=== PATIENT | female | born 1990 | race Two or more races ===

== ENCOUNTER 2017-06-04 08:48 | Day surgery (SDC) | payer BC, MEDICAID ==
[~2017-06-04 08:48] MED LIST: Lactated Ringers 1,000 ML IV SCH; Sodium Chloride 0.9% 10 ML Syringe FLUSH PRN
[2017-06-04] MEDS ORDERED: Lidocaine 2% 100 MG/5 ML Syringe IVPUSH ONE (10:30)
[2017-06-04] MEDS ORDERED: Propofol 200 MG/20 ML SDV IV ONE (10:30)
[2017-06-04] MEDS ORDERED: Midazolam 1 MG/ML 2 ML SDV IV ONE (10:30)
--- NOTE | 2017-06-04 11:03 | PCM.OPNOTE ---
- General Post-Op/Procedure Note Date of Surgery/Procedure: 06/04/17 Operative Procedure(s): egd with biopsy Findings: gastroduodenitis esophagitis Pre Op Diagnosis: gerd Post-Op Diagnosis: gastroduodenitis. esophagitis Primary Surgeon: Dwight Krishnamurthy Anesthesia Provider: Soila Adamson Pathology: duodenum stomach distal esophagus Complications: None Condition: Good Free Text/Narrative:: see dictation [id number]
--- NOTE | 2017-06-04 13:40 | OR ---
DATE OF OPERATION: 06/04/2017 SURGEON: Dwight Krishnamurthy MD PROCEDURE PERFORMED: EGD with cold forceps biopsy. PREOPERATIVE DIAGNOSIS: Symptomatic gastroesophageal reflux disease. POSTOPERATIVE DIAGNOSIS: Gastroduodenitis and esophagitis. INDICATIONS: This is a 27-year-old female, who is referred with the above-mentioned issues of persistent reflux symptoms despite treatment in the past. She was offered and accepted an EGD. DESCRIPTION OF PROCEDURE: After an excellent IV sedation was administered, the bite block was inserted. The flexible endoscope was passed without difficulty down the patient's esophagus into her stomach. The stomach was insufflated, and scope was passed through the pylorus to the second portion of duodenum and slowly withdrawn. The following findings were noted. First portion of the duodenum demonstrates duodenitis, biopsies were taken. Stomach, evidence of acute gastritis especially in the area of the antrum. Biopsies and photos were taken. GE junction measured at approximately 40 cm, but was noted to be highly irregular with evidence of esophagitis suggesting either reflux or even possible Lyman's esophagus and circumferential biopsies were taken of this area as well. This involved the distal 2 to 3 cm of the esophagus. The remainder of the esophageal exam was unremarkable. The stomach was deflated, and scope was removed. The patient tolerated the procedure well and was taken to recovery in good condition. /[id number] [address]
[2017-06-04 13:42] VITALS: BP 102/59
== END 2017-06-04 12:00 | disposition home or self-care (01) ==
LOC: FB.SDS 08:48
PROVIDERS: ATTEND Surgery
DX: K29.50 Unspecified chronic gastritis without bleeding (principal); K29.80 Duodenitis without bleeding; K21.0 Gastro-esophageal reflux disease with esophagitis; F32.9 Major depressive disorder, single episode, unspecified; F41.9 Anxiety disorder, unspecified; F17.210 Nicotine dependence, cigarettes, uncomplicated; Z90.49 Acquired absence of other specified parts of digestive tract; Z98.890 Other specified postprocedural states; Z79.899 Other long term (current) drug therapy
CPT/HCPCS: 43239; 81025; 88305; 88313; 88342; J2250; J2704; J7120

== ENCOUNTER 2017-06-06 15:45 | Emergency (ER) | payer BC, MEDICAID ==
--- NOTE | 2017-06-06 15:51 | EDM.PDOC ---
ED HPI GENERAL MEDICAL PROBLEM - General Chief Complaint: ENT Problem Stated Complaint: SINUS INFECTION Time Seen by Provider: 06/06/17 16:00 Source of Information: Reports: Patient History Limitations: Reports: No Limitations - History of Present Illness INITIAL COMMENTS - FREE TEXT/NARRATIVE: 27 yo F who presents to the ER wiith Sinus and chest congestion associated with cough, Body aches, Nasal congestion as well as ^ Fatigue. Reports that symptoms started 2 days ago and seems to be getting worse. Cough is productive of greenish yellow sputum. Does not recall fever but c/o Facial discomfort and pain over the Sinus area. No chest pain, nausea, vomiting or h/o sick contacts. Presented to the ER for further evaluation Onset: Gradual (started 2 days ago) Duration: Day(s): (2 days) - Related Data Allergies Allergy/AdvReac Type Severity Reaction Status Date / Time No Known Allergies Allergy Verified 06/06/17 16:05 Home Meds: Home Meds Escitalopram [Lexapro] 10 mg PO DAILY 06/03/17 [History] Fluticasone Furoate [Flonase Sensimist] 1 spray NASBOTH BID 06/03/17 [History] atoMOXetine [Strattera] 60 mg PO DAILY 06/03/17 [History] traZODone HCl [Trazodone HCl] 50 - 100 mg PO BEDTIME PRN 06/03/17 [History] Sucralfate [Carafate] 1 gm PO ACBED #56 tab 06/04/17 [Rx] Azithromycin [Zithromax] 250 mg PO DAILY #6 tablet 06/06/17 [Rx] predniSONE [Prednisone] 40 mg PO DAILY #10 tablet 06/06/17 [Rx] Past Medical History - Past Health History Medical/Surgical History: Denies Medical/Surgical History Gastrointestinal History: Reports: GERD 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 OB/BYN History: see triage assessment Psychiatric History: Reports: Anxiety, Depression - Past Surgical History GI Surgical History: Reports: Appendectomy Female Surgical History: Reports: Section, D&C Social & Family History - Tobacco Use Smoking Status *Q: Former Smoker Years of Tobacco use: 15 Used Tobacco, but Quit: Yes Month Tobacco Last Used: FEBRUARY 05, 2017 - Caffeine Use Caffeine Use: Reports: None - Alcohol Use Days Per Week of Alcohol Use: 0 - Recreational Drug Use Recreational Drug Use: No - Living Situation & Occupation Living situation: Reports: with Family Occupation: Employed ED ROS GENERAL - Review of Systems Review Of Systems: See Below Constitutional: Reports: Weakness, Fatigue HEENT: Reports: Rhinitis, Sinus Problem Respiratory: Reports: Shortness of Breath, Cough Cardiovascular: Reports: No Symptoms Endocrine: Reports: No Symptoms GI/Abdominal: Reports: No Symptoms : Reports: No Symptoms Musculoskeletal: Reports: No Symptoms Skin: Reports: No Symptoms Neurological: Reports: No Symptoms Psychiatric: Reports: No Symptoms Hematologic/Lymphatic: Reports: No Symptoms Immunologic: Reports: No Symptoms ED EXAM, GENERAL - Physical Exam Exam: See Below Exam Limited By: No Limitations General Appearance: Alert, WD/WN, No Apparent Distress Eye Exam: Bilateral Eye: Abnormal EOM, Foreign Body Ears: Normal External Exam, Normal Canal, Hearing Grossly Normal, Normal TMs Ear Exam: Bilateral Ear: Auricle Normal, Canal Normal Nose: No Blood, Nasal Drainage Throat/Mouth: Normal Inspection, Normal Lips, Normal Teeth, Normal Gums, Normal Oropharynx Head: Atraumatic, Normocephalic Neck: Normal Inspection, Supple, Non-Tender, Full Range of Motion Respiratory/Chest: No Respiratory Distress, Lungs Clear, Normal Breath Sounds, No Accessory Muscle Use Cardiovascular: Normal Peripheral Pulses, Regular Rate, Rhythm, No Edema, No Gallop, No JVD, No Murmur GI/Abdominal: Normal Bowel Sounds, Soft, Non-Tender, No Organomegaly, No Distention Extremities: Normal Inspection, Normal Range of Motion, Non-Tender, No Pedal Edema, Normal Capillary Refill Neurological: Alert, Oriented, CN II-XII Intact, Normal Cognition, Normal Gait Psychiatric: Normal Affect, Normal Mood Skin Exam: Warm, Dry, Intact, Normal Color, No Rash Lymphatic: No Adenopathy Course - Vital Signs Last Recorded V/S: Last Vital Signs Temp 36.3 C 06/06/17 16:08 Pulse 110 H 06/06/17 16:08 Resp 18 06/06/17 16:08 BP 138/92 H 06/06/17 16:08 Pulse Ox 100 06/06/17 16:08 Departure - Departure Time of Disposition: 16:13 Disposition: Home, Self-Care 01 Clinical Impression: Sinusitis, acute - Discharge Information Prescriptions: Azithromycin [Zithromax] 250 mg PO DAILY #6 tablet predniSONE [Prednisone] 40 mg PO DAILY #10 tablet Referrals: Win Villarreal MD [Primary Care Provider] - Additional Instructions: Follow with PCP Return if symptoms worsen Call your Physician or Return to Emergency Department if: * Your condition worsens in any way. * You develop fever greater than 100.4. * You have vomitting that does not stop with medications. * You have pain that is not controlled with medications. - Problem List & Annotations (1) Sinusitis SNOMED Code(s): 78971612 Code(s): J32.9 - CHRONIC SINUSITIS, UNSPECIFIED Status: Acute Qualifiers: Sinusitis location: maxillary Chronicity: acute Recurrence: recurrent Qualified Code(s): J01.01 - Acute recurrent maxillary sinusitis
[2017-06-06 16:16] VITALS: BP 138/92
== END 2017-06-06 16:27 | disposition home or self-care (01) ==
LOC: FB.ED 15:45
DX: J01.90 Acute sinusitis, unspecified (principal); K21.9 Gastro-esophageal reflux disease without esophagitis; F41.9 Anxiety disorder, unspecified; F32.9 Major depressive disorder, single episode, unspecified; Z90.49 Acquired absence of other specified parts of digestive tract; Z87.891 Personal history of nicotine dependence; Z79.899 Other long term (current) drug therapy
CPT/HCPCS: 99282

== ENCOUNTER 2019-12-27 07:50 | Emergency (ER) | payer BC, MEDICAID ==
--- NOTE | 2019-12-27 08:42 | EDM.PDOC ---
ED HPI GENERAL MEDICAL PROBLEM - General Stated Complaint: THROWING UP Time Seen by Provider: 12/27/19 08:35 Source of Information: Reports: Patient, Family - History of Present Illness INITIAL COMMENTS - FREE TEXT/NARRATIVE: has nausea and vomiting since this am with diarrhea and daughter have same symptoms Onset: Sudden Onset Date: 12/27/19 Duration: Day(s): (one) Location: Reports: Abdomen Quality: Reports: Ache, Dull Improves with: Reports: Rest Worsens with: Reports: Eating, Movement Context: Reports: Sick Contact Associated Symptoms: Reports: Fever/Chills, Malaise, Nausea/Vomiting - Related Data Allergies Allergy/AdvReac Type Severity Reaction Status Date / Time No Known Allergies Allergy Verified 06/06/17 16:05 Home Meds: Home Meds Escitalopram [Lexapro] 10 mg PO DAILY 06/03/17 [History] Fluticasone Furoate [Flonase Sensimist] 1 spray NASBOTH BID 06/03/17 [History] atoMOXetine [Strattera] 60 mg PO DAILY 06/03/17 [History] traZODone HCl [Trazodone HCl] 50 - 100 mg PO BEDTIME PRN 06/03/17 [History] Sucralfate [Carafate] 1 gm PO ACBED #56 tab 06/04/17 [Rx] Azithromycin [Zithromax] 250 mg PO DAILY #6 tablet 06/06/17 [Rx] predniSONE [Prednisone] 40 mg PO DAILY #10 tablet 06/06/17 [Rx] Ondansetron [Zofran ODT] 4 mg PO Q6H PRN #20 tab.dis 12/27/19 [Rx] Past Medical History - Past Health History Medical/Surgical History: Denies Medical/Surgical History Gastrointestinal History: Reports: GERD 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 Psychiatric History: Reports: Anxiety, Depression - Past Surgical History GI Surgical History: Reports: Appendectomy Female Surgical History: Reports: Section, D&C Social & Family History - Caffeine Use Caffeine Use: Reports: None - Living Situation & Occupation Living situation: Reports: with Family Occupation: Employed ED ROS GENERAL - Review of Systems Review Of Systems: See Below Constitutional: Reports: Malaise, Weakness, Fatigue HEENT: Reports: No Symptoms Respiratory: Reports: No Symptoms Cardiovascular: Reports: No Symptoms Endocrine: Reports: No Symptoms GI/Abdominal: Reports: Diarrhea, Decreased Appetite, Difficulty Swallowing, Distension : Reports: No Symptoms ED EXAM, GI/ABD - Physical Exam Exam: See Below Exam Limited By: No Limitations General Appearance: Alert, WD/WN, No Apparent Distress Eyes: Bilateral: EOMI Ears: Normal External Exam Nose: Normal Mucosa Throat/Mouth: Normal Inspection Head: Atraumatic, Normocephalic Neck: Normal Inspection, Supple, Full Range of Motion Cardiovascular: Normal Peripheral Pulses GI/Abdominal Exam: Soft, Non-Tender, No Organomegaly Neurological: Alert, Oriented Departure - Departure Time of Disposition: 08:40 Disposition: Home, Self-Care 01 Condition: Good Clinical Impression: Gastroenteritis - Discharge Information *PRESCRIPTION DRUG MONITORING PROGRAM REVIEWED*: Not Applicable *COPY OF PRESCRIPTION DRUG MONITORING REPORT IN PATIENT MIESHA: Not Applicable Referrals: Win Villarreal MD [Primary Care Provider] -
[2019-12-27 11:20] VITALS: BP 113/46; PULSE 88
== END 2019-12-27 08:50 | disposition home or self-care (01) ==
LOC: FB.ED 07:50
DX: K52.9 Noninfective gastroenteritis and colitis, unspecified (principal); K21.9 Gastro-esophageal reflux disease without esophagitis; F41.9 Anxiety disorder, unspecified; F32.9 Major depressive disorder, single episode, unspecified; Z79.899 Other long term (current) drug therapy
CPT/HCPCS: 99283

== ENCOUNTER 2020-02-01 17:26 | Emergency (ER) | payer MEDICAID ==
[2020-02-01] MEDS ORDERED: Ketorolac 60 MG/2 ML SDV IM ONE (17:48)
--- NOTE | 2020-02-01 17:52 | EDM.PDOC ---
ED HPI GENERAL MEDICAL PROBLEM - General Chief Complaint: ENT Problem Stated Complaint: BODY ACHES, SINUS PRESSURE, FEVER Time Seen by Provider: 02/01/20 17:35 Source of Information: Reports: Patient History Limitations: Reports: No Limitations - History of Present Illness INITIAL COMMENTS - FREE TEXT/NARRATIVE: since yesterday has had sinus congestion worse on the left side of the face today developed sore throat and congestion has gotten worse has facial pain , has fever chills body aches and pains Onset: Sudden Onset Date: 01/30/20 Duration: Getting Worse Location: Reports: Head, Face, Neck Quality: Reports: Ache, Dull, Throbbing Severity: Moderate Improves with: Reports: Heat Therapy Worsens with: Reports: Movement Context: Reports: Activity Associated Symptoms: Reports: Fever/Chills, Headaches, Loss of Appetite, Malaise 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 Generalized Pain Score (Numeric/FACES): 8 - Related Data Allergies Allergy/AdvReac Type Severity Reaction Status Date / Time No Known Allergies Allergy Verified 02/01/20 17:42 Home Meds: Home Meds Amoxicillin/Potassium Clav [Augmentin 875-125 Tablet] 1 each PO BID #20 tablet 02/01/20 [Rx] Naproxen 375 mg PO BID #30 tablet 02/01/20 [Rx] guaiFENesin [Mucinex] 600 mg PO BID #20 tab.er 02/01/20 [Rx] Past Medical History - Past Health History Medical/Surgical History: Denies Medical/Surgical History Gastrointestinal History: Reports: 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 Psychiatric History: Reports: Anxiety, Depression - Infectious Disease History Infectious Disease History: Reports: None - Past Surgical History GI Surgical History: Reports: Appendectomy Female Surgical History: Reports: Section, D&C Social & Family History - Family History Family Medical History: Noncontributory - Tobacco Use Smoking Status *Q: Unknown Ever Smoked - Caffeine Use Caffeine Use: Reports: Soda - Recreational Drug Use Recreational Drug Use: No - Living Situation & Occupation Living situation: Reports: with Family Occupation: Employed ED ROS ENT - Review of Systems Review Of Systems: Comprehensive ROS is negative, except as noted in HPI. ED EXAM, ENT - Physical Exam Exam: See Below Exam Limited By: No Limitations General Appearance: Alert, WD/WN, No Apparent Distress Eye Exam: Bilateral Eye: EOMI Ears: TM Bulging Nose: Clear Rhinorrhea Mouth/Throat: Normal Inspection Head: Atraumatic, Normocephalic Neck: Supple, Non-Tender Respiratory/Chest: Lungs Clear, Normal Breath Sounds Cardiovascular: Regular Rate, Rhythm, No JVD, No Murmur GI/Abdominal: Soft, Non-Tender Back: Full Range of Motion Extremities: Normal Range of Motion Neurological: Alert, Oriented, CN II-XII Intact Psychiatric: Normal Affect Skin: Warm Course - Vital Signs Last Recorded V/S: Last Vital Signs Temp 36.9 C 02/01/20 17:30 Pulse 121 H 02/01/20 17:30 Resp 18 02/01/20 17:30 BP 133/64 02/01/20 17:30 Pulse Ox 100 02/01/20 17:30 - Orders/Labs/Meds Orders: Active Orders 24 hr Category Date Time Status CULTURE STREP A CONFIRMATION [RM] Stat Lab 02/01/20 17:50 Results STREP SCRN A RAPID W CULT CONF [RM] Stat Lab 02/01/20 17:50 Results Isolation [COMM] Routine Oth 02/01/20 17:46 Ordered Meds: Medications Discontinued Medications Generic Name Dose Route Start Last Admin Trade Name Freq PRN Reason Stop Dose Admin Ketorolac Tromethamine 60 mg 02/01/20 17:48 02/01/20 17:54 Toradol IM 02/01/20 17:49 60 mg ONETIME ONE Administration - Re-Assessments/Exams Free Text/Narrative Re-Assessment/Exam: 02/01/20 17:54 pt swabbed for strep and influenza Departure - Departure Time of Disposition: 18:20 Disposition: Home, Self-Care 01 Clinical Impression: Acute maxillary sinusitis - Discharge Information *PRESCRIPTION DRUG MONITORING PROGRAM REVIEWED*: Not Applicable *COPY OF PRESCRIPTION DRUG MONITORING REPORT IN PATIENT MIESHA: Not Applicable Prescriptions: Amoxicillin/Potassium Clav [Augmentin 875-125 Tablet] 1 each PO BID #20 tablet guaiFENesin [Mucinex] 600 mg PO BID #20 tab.er Naproxen 375 mg PO BID #30 tablet Instructions: Sinusitis, Adult, [id number] Referrals: Win Villarreal MD [Primary Care Provider] - Forms: ED Department Discharge Additional Instructions: 1) Warm compress to the affected area of the face tid 2) continue with decongestant as prescribed Sepsis Event Note - Evaluation Sepsis Screening Result: No Definite Risk - Focused Exam Vital Signs: Vital Signs Temp Pulse Resp BP Pulse Ox 02/01/20 17:30 36.9 C 121 H 18 133/64 100 Date Exam was Performed: 02/01/20 Time Exam was Performed: 18:19 - My Orders Last 24 Hours: My Active Orders 02/01/20 17:46 Isolation [COMM] Routine 02/01/20 17:50 CULTURE STREP A CONFIRMATION [RM] Stat STREP SCRN A RAPID W CULT CONF [RM] Stat - Assessment/Plan Last 24 Hours: My Active Orders 02/01/20 17:46 Isolation [COMM] Routine 02/01/20 17:50 CULTURE STREP A CONFIRMATION [RM] Stat STREP SCRN A RAPID W CULT CONF [RM] Stat
[2020-02-01 18:28] VITALS: BP 116/62; PULSE 117
== END 2020-02-01 18:30 | disposition home or self-care (01) ==
LOC: FB.ED 17:26
DX: J01.00 Acute maxillary sinusitis, unspecified (principal)
CPT/HCPCS: 87081; 87804; 87804-59; 87880-QW; 96372; 99283; J1885

== ENCOUNTER 2020-08-07 01:06 | Emergency (ER) | payer MEDICAID ==
--- NOTE | 2020-08-07 01:32 | EDM.PDOC ---
ED HPI GENERAL MEDICAL PROBLEM - General Stated Complaint: FLY FLEW INTO EAR Time Seen by Provider: 08/07/20 01:10 Source of Information: Reports: Patient History Limitations: Reports: No Limitations - History of Present Illness INITIAL COMMENTS - FREE TEXT/NARRATIVE: c/o fly in ear pt felt something fly into her R ear, she tried to remove it with tweezers, thinks it is still there - Related Data Allergies Allergy/AdvReac Type Severity Reaction Status Date / Time No Known Allergies Allergy Verified 02/01/20 17:42 Home Meds: Home Meds Amoxicillin/Potassium Clav [Augmentin 875-125 Tablet] 1 each PO BID #20 tablet 02/01/20 [Rx] Naproxen 375 mg PO BID #30 tablet 02/01/20 [Rx] guaiFENesin [Mucinex] 600 mg PO BID #20 tab.er 02/01/20 [Rx] Past Medical History - Past Health History Medical/Surgical History: Denies Medical/Surgical History Gastrointestinal History: Reports: GERD 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 Psychiatric History: Reports: Anxiety, Depression - Infectious Disease History Infectious Disease History: Reports: None - Past Surgical History GI Surgical History: Reports: Appendectomy Female Surgical History: Reports: Section, D&C Social & Family History - Family History Family Medical History: Noncontributory - Caffeine Use Caffeine Use: Reports: Soda - Living Situation & Occupation Living situation: Reports: with Family Occupation: Employed ED ROS ENT - Review of Systems Review Of Systems: See Below Constitutional: Reports: No Symptoms HEENT: Reports: Other (discomfort R ear canal) Respiratory: Reports: No Symptoms Endocrine: Reports: No Symptoms GI/Abdominal: Reports: No Symptoms : Reports: No Symptoms Musculoskeletal: Reports: No Symptoms Skin: Reports: No Symptoms Neurological: Reports: No Symptoms Psychiatric: Reports: No Symptoms Hematologic/Lymphatic: Reports: No Symptoms Immunologic: Reports: No Symptoms ED EXAM, ENT - Physical Exam Exam: See Below Exam Limited By: No Limitations General Appearance: Alert, WD/WN, No Apparent Distress Ears: Other (small amount of soft allen wax in the central inferior canal, flushed free by RN, TM and canal then patent without f.b., no trauma to canal or TM) Nose: No: Injected Turbinates Neck: Normal Inspection, Supple. No: Lymphadenopathy (R), Lymphadenopathy (L) Respiratory/Chest: Lungs Clear Cardiovascular: Regular Rate, Rhythm Neurological: Alert, Oriented, CN II-XII Intact, Normal Cognition, No Mo tor/Sensory Deficits Psychiatric: Normal Affect, Normal Mood Skin: Warm, Dry, Intact, Normal Color, No Rash Lymphatic: No Adenopathy Departure - Departure Time of Disposition: 01:23 Disposition: Home, Self-Care 01 Condition: Good Clinical Impression: Foreign body sensation in right ear canal - Discharge Information *PRESCRIPTION DRUG MONITORING PROGRAM REVIEWED*: Not Applicable *COPY OF PRESCRIPTION DRUG MONITORING REPORT IN PATIENT MIESHA: Not Applicable Instructions: Ear Foreign Body Referrals: Win Villarreal MD [Primary Care Provider] - Additional Instructions: The ear drum and ear canal are intact and without injury. There is no foreign body present. See your doctor if you have additional concerns.
[2020-08-10 09:38] VITALS: BP 144/72; PULSE 78
== END 2020-08-07 01:25 | disposition home or self-care (01) ==
LOC: FB.ED 01:06
DX: H61.21 Impacted cerumen, right ear (principal)
CPT/HCPCS: 99282

== ENCOUNTER 2022-05-17 22:45 | Emergency (ER) | payer MEDICAID ==
[2022-05-18] LABS: ESTIMATED GFR 119 mL/min (>60)
[2022-05-18 00:19] VITALS: BP 109/66; PULSE 74
== END 2022-05-18 00:38 | disposition home or self-care (01) ==
LOC: FB.ED 22:45
DX: R07.89 Other chest pain (principal); F41.9 Anxiety disorder, unspecified
CPT/HCPCS: 36415; 71046; 80053; 84484; 85025; 85379; 93005; 93010; 99282; 99285-25

== ENCOUNTER 2025-03-02 15:46 | Emergency (ER) | payer MEDICAID ==
[2025-03-02 16:27] VITALS: BP 118/75; PULSE 93
== END 2025-03-02 16:22 ==
LOC: FB.ED 15:46
DX: O99.891 Other specified diseases and conditions complicating pregnancy (principal); R10.31 Right lower quadrant pain; Z79.899 Other long term (current) drug therapy; Z90.49 Acquired absence of other specified parts of digestive tract; Z3A.13 13 weeks gestation of pregnancy
CPT/HCPCS: 99283; 99284